=== PATIENT | male | born 1975 | race Caucasian/White ===

== ENCOUNTER 2024-07-07 10:43 | Day surgery (SDC) | payer MEDICAID ==
[2024-07-02 13:54] LABS: BASOPHILS % (AUTO) 0.5 % (0-1); EOSINOPHILS # (AUTO) 0.1 X10'3 (0-0.9); EOSINOPHILS % (AUTO) 1.7 % (0-6); LYMPHOCYTES # (AUTO) 3.1 X10'3 (1.1-4.8); LYMPHOCYTES % (AUTO) 35.6 % (21-51); MEAN CORPUSCULAR HEMOGLOBIN 30.1 PG (27.0-31.0); MEAN CORPUSCULAR HGB CONC 33.9 g/dL (33.0-36.5); MEAN CORPUSCULAR VOLUME 88.7 FL (78-98); MEAN PLATELET VOLUME 7.5 FL (7.4-10.4); MONOCYTES # (AUTO) 0.6 X10'3 (0-0.9); MONOCYTES % (AUTO) 7.1 % (2-12); NEUTROPHILS # (AUTO) 4.8 X10'3 (1.8-7.7); NEUTROPHILS % (AUTO) 55.1 % (42-75); PRE OP HEMATOCRIT 51.5 % (42.0-52.0); PRE OP HEMOGLOBIN 17.5 g/dL (14.0-17.9); PRE OP PLATELET COUNT 296 X10'3 (140-440); PRE OP WHITE BLOOD COUNT 8.7 10'3 (4.8-10.8); RED BLOOD COUNT 5.81 X10'6 (4.70-6.10); RED CELL DISTRIBUTION WIDTH 13.6 % (11.5-14.5)
[2024-07-02 14:03] LABS: ALBUMIN 4.5 G/DL (3.4-5.0); ALBUMIN/GLOBULIN RATIO 1.1 (1.1-1.5); ALKALINE PHOSPHATASE 58 IU/L (46-116); BLOOD UREA NITROGEN 17 MG/DL (7-18); BUN/CREATININE RATIO 16.7 (10.0-20.0); CALCIUM 9.4 MG/DL (8.5-10.1); CHLORIDE 103 MMOL/L (99-107); CREATININE 1.02 MG/DL (0.60-1.10); PRE OP ALT 35 U/L (30-65); PRE OP ANION GAP 7 (8-16); PRE OP AST 13 U/L (10-37); PRE OP BILIRUB, TOTAL 0.6 MG/DL (0.0-1.0); PRE OP GLUCOSE 91 MG/DL (70-104); PRE OP POTASSIUM 4.4 MMOL/L (3.4-5.1); PRE OP SODIUM 140 MMOL/L (135-145); TOTAL PROTEIN 8.6 G/DL (6.4-8.2); eGFR 77 ML/MIN
[~2024-07-07] VITALS: Ht 185.4 cm; Wt 93.8 kg
[2024-07-07] VITALS (12 sets, daily range): BP systolic 131–150; BP diastolic 83–110; PULSE 68–101; RESP 10–18; TEMP 98.5; O2SAT 97–100
[2024-07-07] MEDS: ceFAZolin 2gm in dextrose, iso 50 ML IV ONE (05:30)
[~2024-07-07 10:43] MED LIST: NO HOME MEDS
[2024-07-07] MEDS: famotidine 20mg tablet PO ONE (11:42)
[2024-07-07] MEDS: ringers solution, lacted 1,000 ML IV SCH (11:43)
[2024-07-07] MEDS ORDERED: BUPIVAcaine 2.5mg/ml inj 50ml vial (contains preservative) ONE (13:12)
[2024-07-07] MEDS ORDERED: LIDOcaine 1% 30ml preserv. free vial ONE (13:12)
[2024-07-07] MEDS ORDERED: BUPIVACAINE liposomal/PF 13.3 MG/ML 10mL vial IM ONE (13:13)
[2024-07-07] MEDS ORDERED: sevoflurane 250ml liquid IH ONE (13:26)
[2024-07-07] MEDS ORDERED: midazolam 1 mg/ML 2ml injection ONE (13:40)
[2024-07-07] MEDS ORDERED: fentaNYL /PF 50mcg/ml 5ml ampule ONE (13:41)
[2024-07-07] MEDS: BUPIVAcaine/PF 2.5 mg/ml (0.25%) 30ml vial IJ ONE (13:43)
[2024-07-07] MEDS ORDERED: proCHLORperazine 10 MG/2 ml inj IV PRN (13:55)
[2024-07-07] MEDS ORDERED: meperidine/PF 100mg/ml syringe IV PRN (13:55)
[2024-07-07] MEDS ORDERED: ondansetron/PF 4mg/2ml inj IV PRN (13:55)
[2024-07-07] MEDS ORDERED: labetalol 20mg/4ml (5mg/ml) syringe IV PRN (13:55)
[2024-07-07] MEDS ORDERED: hydrALAZINE 20mg/ml inj. IV PRN (13:55)
[2024-07-07] MEDS ORDERED: morphine 2 MG/ML inj. syringe IV PRN (13:55)
[2024-07-07] MEDS ORDERED: ringers solution, lacted 1,000 ML IV SCH (13:55)
[2024-07-07] MEDS ORDERED: HYDROmorphone/PF 0.2 MG/ML SYRINGE IV PRN ×2 (13:55)
[2024-07-07] MEDS ORDERED: morphine 4 MG/ML inj SYRINge IV PRN (13:55)
[2024-07-07] MEDS ORDERED: LIDOcaine 2% (20mg/ml) 5ml vial ONE (14:04)
[2024-07-07] MEDS ORDERED: neostigmine methylsulfate 1 MG/ML 10ml vial ONE (14:04)
[2024-07-07] MEDS ORDERED: rocuronium 10mg/ml inj IV ONE (14:04)
[2024-07-07] MEDS ORDERED: ondansetron/PF 4mg/2ml inj ONE (14:04)
[2024-07-07] MEDS ORDERED: propofol inj 20 ML IV ONE (14:04)
[2024-07-07] MEDS ORDERED: dexamethasone sod phosphate 4mg/ml inj. ONE (14:04)
[2024-07-07] MEDS ORDERED: glycopyrrolate 0.2mg/ml inj ONE (14:36)
[2024-07-07] MEDS: oxyCODONE/APAP 5-325mg tablet PO PRN (15:42)
[2024-07-07] MEDS: acetaminophen 1,000mg/100ml IV 100 ML IV PRN (15:43)
== END 2024-07-07 16:26 | disposition home or self-care (01) ==
LOC: PAS 10:43
PROVIDERS: ATTEND Surgery
DX: K43.9 Ventral hernia without obstruction or gangrene (principal); Z79.899 Other long term (current) drug therapy; Z98.890 Other specified postprocedural states
CPT/HCPCS: 36415; 49591; 64488; 80053; 82948; 85025; 93005; C1781; J0131; J0666; J0690; J1100; J2003; J2250; J2405; J2704; J2710; J3010; J3490; J7030; J7120; Z7506; Z7508; Z7512; A4215; A4618